=== PATIENT | female | born 1965 | race American Indian/Alaskan Native ===

== ENCOUNTER 2017-12-03 14:50 | Emergency (ER) | payer OTHER ==
[2017-12-03] MEDS ORDERED: TYLENOL ONE (15:14)
[2017-12-03] MEDS ORDERED: NACL 0.9% 500 ML 500 ML IV ONE (15:18)
[2017-12-03] MEDS ORDERED: TYLENOL PO ONE (15:19)
--- NOTE | 2017-12-03 15:42 | XRay Report ---
FINAL REPORT PROCEDURE: XR CHEST 1V AP TECHNIQUE: Chest radiograph anteroposterior view. CPT 48350 HISTORY: possible Sepsis COMPARISON: No prior studies are available for comparison. FINDINGS: Heart: Normal. Mediastinum/Vessels: Normal. Lungs/Pleural space: No infiltrate, effusion, or pneumothorax. Bony thorax: No acute osseous abnormality. Life support devices: None. IMPRESSION: No radiographic evidence of acute cardiopulmonary abnormality.
--- NOTE | 2017-12-03 15:50 | Emergency Department Report ---
- General Chief Complaint: Upper Respiratory Infection Stated Complaint: FLU LIKE SYMPTOMS Time Seen by Provider: 12/03/17 15:30 Source: patient Mode of arrival: Ambulatory Limitations: No Limitations - History of Present Illness Initial Comments: Patient is a 52-year-old female presents to emergency room with high fever, cough, chills, body aches and runny nose 2 days. Patient states the cough is dry and nonproductive. Patient states the fever chills or worsening. Patient denies abdominal pain, chest pain, shortness of breath, diarrhea, nausea, vomiting, headache, sinus pressure. MD Complaint: fever, cough, rhinorrhea -: Sudden Severity: severe Consistency: constant Improves With: rest Worsens With: nothing Context: sick contacts Associated Symptoms: fever, chills, myalgias, rhinorrhea, sore throat, cough. denies: diaphoresis, headache, nasal congestion, stiff neck, chest pain, shortness of breath, abdominal pain, nausea, vomiting, diarrhea, dysuria, rash, confusion, right sweats, weight loss, epistaxis, hoarseness, ear pain Treatments Prior to Arrival: none - Related Data Previous Rx's Medication Instructions Recorded Last Taken Type Sulfamethoxazole/Trimethoprim 1 each PO BID 10 Days #20 tablet 12/03/17 Unknown Rx [Bactrim DS TAB] Allergies Allergy/AdvReac Type Severity Reaction Status Date / Time naproxen [From Aleve] Allergy Unknown Verified 12/03/17 15:18 phenazopyridine Allergy Unknown Verified 12/03/17 15:18 [From Pyridium] Tetracyclines Allergy Unknown Verified 12/03/17 15:18 tramadol [From Ultram] Allergy Unknown Verified 12/03/17 15:18 ED Review of Systems ROS: Stated complaint: FLU LIKE SYMPTOMS Other details as noted in HPI Constitutional: chills, fever Eyes: denies: eye pain, eye discharge, vision change ENT: denies: ear pain, throat pain Respiratory: cough. denies: shortness of breath, wheezing Cardiovascular: denies: chest pain, palpitations Endocrine: no symptoms reported Gastrointestinal: denies: abdominal pain, nausea, diarrhea Genitourinary: denies: urgency, dysuria, discharge Musculoskeletal: denies: back pain, joint swelling, arthralgia Skin: denies: rash, lesions Neurological: denies: headache, weakness, paresthesias Psychiatric: denies: anxiety, depression Hematological/Lymphatic: denies: easy bleeding, easy bruising ED Past Medical Hx - Past Medical History Previous Medical History?: Yes Hx Arthritis: Yes (RA) - Surgical History Past Surgical History?: Yes Additional Surgical History: x2,hysterectomy,bladder surgery,carpel tunnel release bilateral - Family History Family history: hypertension - Social History Smoking Status: Never Smoker Substance Use Type: None - Medications Home Medications: Home Medications Medication Instructions Recorded Confirmed Last Taken Type Sulfamethoxazole/Trimethoprim 1 each PO BID 10 Days #20 tablet 12/03/17 Unknown Rx [Bactrim DS TAB] ED Physical Exam - General Limitations: No Limitations General appearance: alert, in no apparent distress - Head Head exam: Present: atraumatic, normocephalic - Eye Eye exam: Present: normal appearance - ENT ENT exam: Present: mucous membranes dry, TM's normal bilaterally, normal external ear exam, other - Expanded ENT Exam Expanded Throat exam: Positive: tonsillar erythema - Neck Neck exam: Present: normal inspection - Respiratory Respiratory exam: Present: normal lung sounds bilaterally. Absent: respiratory distress - Cardiovascular Cardiovascular Exam: Present: regular rate, normal rhythm. Absent: systolic murmur, diastolic murmur, rubs, gallop - GI/Abdominal GI/Abdominal exam: Present: soft, normal bowel sounds - Extremities Exam Extremities exam: Present: normal inspection - Back Exam Back exam: Present: normal inspection - Neurological Exam Neurological exam: Present: alert, oriented X3 - Psychiatric Psychiatric exam: Present: normal affect, normal mood - Skin Skin exam: Present: warm, dry, intact, normal color. Absent: rash ED Course Vital Signs 12/03/17 12/03/17 12/03/17 14:55 15:21 15:23 Temperature 103.2 F H Pulse Rate 114 H Respiratory 18 18 Rate Blood Pressure 139/87 148/93 Blood Pressure [Right] O2 Sat by Pulse 98 Oximetry 12/03/17 12/03/17 12/03/17 15:30 15:46 15:50 Temperature Pulse Rate 101 H 95 H 96 H Respiratory 18 17 18 Rate Blood Pressure 133/80 Blood Pressure 133/80 [Right] O2 Sat by Pulse 100 99 97 Oximetry 12/03/17 12/03/17 12/03/17 15:56 16:00 16:06 Temperature Pulse Rate 95 H 100 H 94 H Respiratory 22 21 25 H Rate Blood Pressure Blood Pressure [Right] O2 Sat by Pulse 96 97 96 Oximetry 12/03/17 12/03/17 12/03/17 16:10 16:15 16:16 Temperature 100.6 F H Pulse Rate 94 H 91 H 91 H Respiratory 22 18 18 Rate Blood Pressure Blood Pressure 119/75 [Right] O2 Sat by Pulse 96 100 97 Oximetry 12/03/17 12/03/17 12/03/17 16:20 16:43 16:45 Temperature Pulse Rate 92 H 91 H 86 Respiratory 25 H 29 H Rate Blood Pressure 119/75 113/71 Blood Pressure [Right] O2 Sat by Pulse 96 97 Oximetry 12/03/17 12/03/17 12/03/17 16:50 16:56 17:00 Temperature Pulse Rate 91 H 93 H 86 Respiratory 18 14 18 Rate Blood Pressure 116/70 Blood Pressure [Right] O2 Sat by Pulse 96 97 96 Oximetry 12/03/17 12/03/17 12/03/17 17:06 17:10 17:15 Temperature Pulse Rate 90 90 88 Respiratory 22 20 16 Rate Blood Pressure 116/70 116/70 130/73 Blood Pressure [Right] O2 Sat by Pulse 96 97 98 Oximetry 12/03/17 12/03/17 12/03/17 17:24 17:26 17:30 Temperature Pulse Rate 95 H 92 H 87 Respiratory 17 19 17 Rate Blood Pressure 130/73 130/73 115/66 Blood Pressure [Right] O2 Sat by Pulse 98 96 99 Oximetry 12/03/17 12/03/17 12/03/17 17:36 17:40 17:45 Temperature Pulse Rate 89 85 86 Respiratory 11 L 16 23 Rate Blood Pressure 115/66 115/66 125/73 Blood Pressure [Right] O2 Sat by Pulse 97 97 95 Oximetry 12/03/17 12/03/17 12/03/17 17:50 17:56 18:00 Temperature Pulse Rate 85 86 84 Respiratory 15 20 14 Rate Blood Pressure 125/73 125/73 116/72 Blood Pressure [Right] O2 Sat by Pulse 96 95 95 Oximetry 12/03/17 12/03/17 12/03/17 18:06 18:15 18:20 Temperature Pulse Rate 80 89 Respiratory 19 29 H Rate Blood Pressure 116/72 121/65 121/65 Blood Pressure [Right] O2 Sat by Pulse 97 97 96 Oximetry 12/03/17 12/03/17 12/03/17 18:26 18:30 18:36 Temperature Pulse Rate 82 81 80 Respiratory 23 24 31 H Rate Blood Pressure 121/65 119/68 119/68 Blood Pressure [Right] O2 Sat by Pulse 97 97 97 Oximetry 12/03/17 12/03/17 12/03/17 19:00 19:30 20:00 Temperature 98.7 F Pulse Rate 77 82 76 Respiratory 30 H 21 18 Rate Blood Pressure 115/63 116/60 116/59 Blood Pressure 116/59 [Right] O2 Sat by Pulse 96 95 97 Oximetry - Reevaluation(s) Reevaluation #1: SR results with patient. Patient agrees with plan of care and discharged. Patient is waiting for a second BMP to check sodium. Patient states she feels better since coming to the hospital. 12/03/17 19:00 ED Medical Decision Making - Lab Data Result diagrams: 12/03/17 15:34 12/03/17 19:37 - EKG Data -: EKG Interpreted by [facility] EKG shows normal: sinus rhythm, axis, intervals, QRS complexes, ST-T waves Rate: normal - Radiology Data Radiology results: report reviewed Chest x-ray negative - Medical Decision Making Patient is a 52-year-old female that presented to the emergency room with high fever and upper respiratory symptoms. Workup was negative except for UTI low sodium.. Repeat chemistry shows potassium and sodium back to normal. Patient stable for discharge. Patient discharged home with discharge instructions. Patient given strict return to ER precautions and instructions. Discussed all results with patient. Patient agrees with plan of care - Differential Diagnosis uri. sepsis. sinusitis. uti Critical care attestation.: If time is entered above; I have spent that time in minutes in the direct care of this critically ill patient, excluding procedure time. ED Disposition Clinical Impression: Upper respiratory disease Fever Qualifiers: Fever type: unspecified Qualified Code(s): R50.9 - Fever, unspecified UTI (urinary tract infection) Qualifiers: Urinary tract infection type: acute cystitis Hematuria presence: with hematuria Qualified Code(s): N30.01 - Acute cystitis with hematuria Disposition: TO HOME OR SELFCARE Is pt being admited?: No Does the pt Need Aspirin: No Condition: Stable Instructions: Urinary Tract Infection in Women (ED), Upper Respiratory Infection (ED) Additional Instructions: He should follow up with primary care in 3-5 days. Patient to return to ER if condition worsens. Patient to rest. Patient to increase water. Patient to take meds as directed. Patient to take ibuprofen and Tylenol when necessary for pain and fever. Prescriptions: Sulfamethoxazole/Trimethoprim [Bactrim DS TAB] 1 each PO BID 10 Days #20 tablet Referrals: PRIMARY CARE, [Primary Care Provider] - 3-5 Days Time of Disposition: 20:26
[2017-12-03 15:56] LABS: Basophils % (Auto) 0.8 % (0.0-1.8); Eosinophils # (Auto) 0.1 K/mm3 (0.0-0.4); Hematocrit 33.3 % (30.3-42.9); Lymphocytes # (Auto) 1.4 K/mm3 (1.2-5.4); Lymphocytes % (Auto) 24.1 % (13.4-35.0); Mean Corpuscular HGB Conc 33 % (30-34); Mean Corpuscular Hemoglobin 29 pg (28-32); Mean Corpuscular Volume 87 fl (79-97); Monocytes # (Auto) 0.7 K/mm3 (0.0-0.8); Monocytes % (Auto) 12.3 % (0.0-7.3); Platelet Count 220 K/mm3 (140-440); Red Blood Count 3.81 M/mm3 (3.65-5.03); Red Cell Distribution Width 12.6 % (13.2-15.2)
[2017-12-03 16:39] LABS: Alanine Aminotransferase 8 units/L (7-56); Albumin 3.6 g/dL (3.9-5); BUN/Creatinine Ratio 9; Blood Urea Nitrogen 7 mg/dL (7-17); Calcium 9.1 mg/dL (8.4-10.2); Hemolysis Index 4
[2017-12-03 17:12] LABS: INR 1.08 (0.87-1.13)
[2017-12-03 17:18] LABS: Bacteria,Urine 1+ /HPF (Negative); Bilirubin,Urine NEG (Negative); Blood,Urine MOD (Negative); Color,Urine Yellow (Yellow); Protein,Urine <15 mg/dL mg/dL (Negative)
[2017-12-03] MEDS ORDERED: ROCEPHIN/NS 1 GM/50 ML 1 GM/50 ML BAG IV ONE (20:00)
[2017-12-03 20:22] LABS: BUN/Creatinine Ratio 9; Blood Urea Nitrogen 6 mg/dL (7-17); Calcium 8.8 mg/dL (8.4-10.2); Hemolysis Index 18
[2017-12-03 21:16] VITALS: BP 128/74
== END 2017-12-03 21:16 | disposition home or self-care (01) ==
LOC: ED 14:50
DX: J06.9 Acute upper respiratory infection, unspecified (principal); N30.01 Acute cystitis with hematuria; M19.90 Unspecified osteoarthritis, unspecified site; Z90.710 Acquired absence of both cervix and uterus; Z88.6 Allergy status to analgesic agent; Z88.8 Allergy status to other drugs, medicaments and biological substances; Z88.1 Allergy status to other antibiotic agents
CPT/HCPCS: 36415; 71045; 80048; 80053; 81001; 82140; 82805; 85025; 85610; 87040; 87086; 93005; 93010; 96365; 99284; J0696; J7040